=== PATIENT | female | born 1960 | race African-American/Black ===

== ENCOUNTER 2023-12-05 08:44 | Outpatient (CLI) | payer OTHER | END 2023-12-05 08:45 | disposition home or self-care (01) | LOC: CT 08:44 | PROVIDERS: ATTEND Orthopaedic Surgery | DX: M17.11 Unilateral primary osteoarthritis, right knee (principal) ==

== ENCOUNTER 2023-12-09 10:20 | Outpatient (CLI) | payer OTHER ==
[2023-12-09 11:46] LABS: #Basophils Less than 0.03 10x3/uL (0.0-0.2); %Basophils 0.4 % (0.0-1.0); %Eosinophils 2.2 % (0.0-10.0); %Lymphocytes 24.3 % (21.0-51.0); %Monocytes 8.1 % (0.0-10.0); %Neutrophils 64.6 % (42.0-75.0); Hematocrit 31.7 % (36.0-47.0); Hemoglobin 10.5 g/dL (12.0-16.0); Mean Corpuscular HGB CONC 33.1 g/dL (32.0-36.0); Mean Corpuscular Hemoglobin 26.9 pg (27.0-31.0); Mean Corpuscular Volume 81.3 fL (78.0-98.0); Mean Platelet Volume 12.1 fL (7.4-10.4); Platelet Count 184 10x3/uL (130-400); RBC Distribution Width 13.9 % (11.5-14.5)
[2023-12-09 11:59] LABS: Prothrombin Time 13.6 sec (12.0-14.7)
[2023-12-09 12:03] LABS: Anion Gap 10 mmol/L (10-20); BUN (Urea Nitrogen) 13 mg/dL (9.8-20.1); Calc. Creatinine Clearance 0 mL/min (70-130); Carbon Dioxide 28 mmol/L (23-31); Chloride 104 mmol/L (98-107); Estimated GFR 99; Glucose 95 mg/dL (80-115); Potassium 3.4 mmol/L (3.5-5.1); Sodium 139 mmol/L (136-145)
== END 2023-12-09 10:21 | disposition home or self-care (01) ==
LOC: LABBT 10:20
PROVIDERS: ATTEND Orthopaedic Surgery
DX: Z01.818 Encounter for other preprocedural examination (principal); M17.11 Unilateral primary osteoarthritis, right knee
CPT/HCPCS: 80048; 85025; 85610; 87081; 93005; 93010

== ENCOUNTER 2024-01-27 10:57 | Outpatient (CLI) | payer MEDICARE, OTHER ==
[2024-01-27 12:17] LABS: Prothrombin Time 13.4 sec (12.0-14.7)
[2024-01-27 12:37] LABS: #Basophils Less than 0.03 10x3/uL (0.0-0.2); %Basophils 0.4 % (0.0-1.0); %Eosinophils 2.6 % (0.0-10.0); %Lymphocytes 23.6 % (21.0-51.0); %Monocytes 7.7 % (0.0-10.0); %Neutrophils 65.1 % (42.0-75.0); Hematocrit 34.8 % (36.0-47.0); Hemoglobin 11.2 g/dL (12.0-16.0); Mean Corpuscular HGB CONC 32.2 g/dL (32.0-36.0); Mean Corpuscular Hemoglobin 26.4 pg (27.0-31.0); Mean Corpuscular Volume 81.9 fL (78.0-98.0); Platelet Count 186 10x3/uL (130-400); RBC Distribution Width 14.7 % (11.5-14.5); Red Blood Cell (RBC) Count 4.25 mill/uL (4.20-5.40)
[2024-01-27 13:19] LABS: Anion Gap 14 mmol/L (10-20); BUN (Urea Nitrogen) 14 mg/dL (9.8-20.1); Calc. Creatinine Clearance 0 mL/min (70-130); Calcium 9.4 mg/dL (7.8-10.44); Carbon Dioxide 25 mmol/L (23-31); Chloride 104 mmol/L (98-107); Estimated GFR 103; Glucose 95 mg/dL (80-115); Potassium 3.5 mmol/L (3.5-5.1); Sodium 139 mmol/L (136-145)
== END 2024-01-27 10:58 | disposition home or self-care (01) ==
LOC: LABBT 10:57
PROVIDERS: ATTEND Orthopaedic Surgery
DX: Z01.812 Encounter for preprocedural laboratory examination (principal); M17.11 Unilateral primary osteoarthritis, right knee
CPT/HCPCS: 80048; 85025; 85610; 87081; 93005; 93010

== ENCOUNTER 2024-02-03 05:29 | Observation (INO) | payer MEDICARE ==
[2024-02-03] MEDS ORDERED: Tranexamic Acid 1,000 MG/10 ML VIAL ONE (06:03)
[2024-02-03] MEDS ORDERED: Sodium Chloride 0.9% 100 ML ONE (06:03)
[2024-02-03] MEDS ORDERED: Vancomycin (BATCH) 1.5 GM/300 ML BAG ONE (06:03)
[2024-02-03] MEDS ORDERED: Midazolam HCl 2 mg/2 ml Vial ONE (06:25)
[2024-02-03] MEDS ORDERED: fentaNYL 50 mcg/mL 1 mL Vial ONE (06:25)
[2024-02-03] MEDS ORDERED: EPINEPHrine 1 MG/ML VIAL ONE (06:25)
[2024-02-03] MEDS ORDERED: Bupivacaine PF 0.5% 30 ML VIAL ONE (06:25)
[2024-02-03] MEDS ORDERED: CEFAZOLIN 2 GM VIAL ONE (06:51)
[2024-02-03] MEDS ORDERED: Dexamethasone 20 MG/5 ML VIAL ONE (07:19)
[2024-02-03] MEDS ORDERED: Lidocaine 1% PF 5 ML VIAL ONE (07:19)
[2024-02-03] MEDS ORDERED: PROPOFOL 200 MG/20 ML VIAL ONE (07:19)
[2024-02-03] MEDS ORDERED: PHENYLEPHRINE-NS 100 MCG/ML 10 ML SYRINGE ONE (07:19)
[2024-02-03] MEDS ORDERED: Promethazine HCl 25 MG/ML VIAL IM PRN ×2 (07:45→09:06)
[2024-02-03] MEDS ORDERED: traMADol HCl 50 MG TAB PO PRN (07:45)
[2024-02-03] MEDS ORDERED: HYDROcodone/Acetaminophen 10/325 mg Tablet PO PRN (07:45)
[2024-02-03] MEDS ORDERED: Ropivacaine 0.2% 550 ML 550 ML NERVE BLCK SCH (07:45)
[2024-02-03] MEDS ORDERED: diphenhydrAMINE 25 MG CAP PO PRN (09:06)
[2024-02-03] MEDS ORDERED: Ondansetron PF 4 MG/2 ML Vial IVP PRN (09:06)
[2024-02-03] MEDS ORDERED: Zolpidem Tartrate 5 MG TAB PO PRN (09:06)
[2024-02-03] MEDS ORDERED: Acetaminophen 325 MG TAB PO PRN (09:06)
[2024-02-03] MEDS: Senokot S 8.6-50 MG TAB PO SCH (10:58)
[2024-02-03] MEDS: NIFEdipine XL 60 MG ER.TAB PO SCH (10:58)
[2024-02-03] MEDS: Ferrous Gluconate 324 MG TAB PO SCH (10:59)
[2024-02-03] MEDS: Aspirin 81 mg Enteric Coated Tablet PO SCH (10:59)
[2024-02-03] MEDS: Multivitamin W/ Minerals 1 TAB PO SCH (10:59)
[2024-02-03] MEDS: Ketorolac Tromethamine 30 MG (1 mL) VIAL IVP SCH (13:32)
[2024-02-03] MEDS: fentaNYL 50 mcg/mL 1 mL Vial SLOW IVP PRN (13:33)
[2024-02-03] MEDS: Ondansetron PF 4 MG/2 ML Vial IVP PRN (14:10)
[2024-02-03] MEDS: Oxybutynin ER 5 MG TAB PO SCH (14:28)
[2024-02-03] MEDS: CEFAZOLIN 2 GM in Sodium Chloride 0.9% 100 ML IVPB SCH (15:24)
[2024-02-03] MEDS: Sodium Chloride 0.9% 1,000 ML IV SCH (15:25)
[2024-02-03] MEDS: HYDROcodone/Acetaminophen 10/325 mg Tablet PO PRN (17:42)
[2024-02-03] MEDS: Zolpidem Tartrate 5 MG TAB PO PRN (21:39)
[2024-02-04] MEDS: traMADol HCl 50 MG TAB PO PRN (06:08)
[2024-02-04 06:49] LABS: Hematocrit 27.7 % (36.0-47.0); Hemoglobin 8.9 g/dL (12.0-16.0); Mean Corpuscular HGB CONC 32.1 g/dL (32.0-36.0); Mean Corpuscular Hemoglobin 26.1 pg (27.0-31.0); Mean Corpuscular Volume 81.2 fL (78.0-98.0); Mean Platelet Volume 12.5 fL (7.4-10.4); Platelet Count 180 10x3/uL (130-400); RBC Distribution Width 14.6 % (11.5-14.5); Red Blood Cell (RBC) Count 3.41 mill/uL (4.20-5.40)
[2024-02-04 10:56] VITALS: BMI 46.3
[2024-02-05 04:35] LABS: Hematocrit 27.1 % (36.0-47.0); Hemoglobin 8.6 g/dL (12.0-16.0); Mean Corpuscular HGB CONC 31.7 g/dL (32.0-36.0); Mean Corpuscular Hemoglobin 25.9 pg (27.0-31.0); Mean Corpuscular Volume 81.6 fL (78.0-98.0); Mean Platelet Volume 12.5 fL (7.4-10.4); Platelet Count 177 10x3/uL (130-400); RBC Distribution Width 14.8 % (11.5-14.5); Red Blood Cell (RBC) Count 3.32 mill/uL (4.20-5.40)
[2024-02-05 09:18] VITALS: BP 138/85; TEMP 98.5
[2024-02-05] MEDS: Calcium Carbonate 500 MG ChewTAB PO SCH (12:03)
== END 2024-02-05 12:25 | disposition home or self-care (01) ==
LOC: SDC 05:29 → SURG A 12:50 → SDC 15:27 → SURG A 15:27
PROVIDERS: ADMIT Orthopaedic Surgery; ATTEND Orthopaedic Surgery
PROC: 3E0T3BZ Introduction of Anesthetic Agent into Peripheral Nerves and Plexi, Percutaneous Approach (ICD-10-PCS; principal; 2024-02-03)
PROC: 0SRC0JZ Replacement of Right Knee Joint with Synthetic Substitute, Open Approach (ICD-10-PCS; 2024-02-03)
DX: M17.11 Unilateral primary osteoarthritis, right knee (principal); I10 Essential (primary) hypertension; D61.818 Other pancytopenia; E66.9 Obesity, unspecified; Z68.42 Body mass index [BMI] 45.0-49.9, adult
CPT/HCPCS: 0055T; 27447; 64448; 36415; 85027; A4306; C1713; C1776; C1889; J0171; J0665; J1100; J1171; J1885; J2250; J2405; J2704; J2795; J3010; J3370; J7030